=== PATIENT | male | born 1985 | race Caucasian/White ===

== ENCOUNTER 2016-11-17 22:22 | Emergency (ER) | payer BC ==
[2016-11-17 22:34] VITALS: TEMP 99.4
[2016-11-18 00:25] VITALS: RESP 20
[2016-11-18 00:26] VITALS: BP 111/51; PULSE 75; O2SAT 98
== END 2016-11-17 23:35 | disposition home or self-care (01) ==
LOC: ED 22:22
DX: S06.0X9A Concussion with loss of consciousness of unspecified duration, initial encounter (principal); W19.XXXA Unspecified fall, initial encounter; S02.2XXA Fracture of nasal bones, initial encounter for closed fracture
CPT/HCPCS: 70450; 99284